=== PATIENT | female | born 1960 | race Caucasian/White ===

== ENCOUNTER 2022-06-24 13:38 | Emergency (ER) | payer OTHER | END 2022-06-24 16:15 | disposition home or self-care (01) | LOC: JP.ED 13:38 | DX: S42.201A Unspecified fracture of upper end of right humerus, initial encounter for closed fracture (principal); S16.1XXA Strain of muscle, fascia and tendon at neck level, initial encounter; S80.12XA Contusion of left lower leg, initial encounter; S70.311A Abrasion, right thigh, initial encounter; Z79.899 Other long term (current) drug therapy; W18.09XA Striking against other object with subsequent fall, initial encounter | CPT/HCPCS: 70450; 70450-26; 72125; 72125-26; 73030-26-RT; 73030-RT; 73590-26-LT; 73590-LT; 99284 ==